=== PATIENT | male | born 1950 | race African-American/Black ===

== ENCOUNTER → 2017-11-21 | Day surgery (SDC) | payer MEDICARE, OTHER ==
[2017-11-20 12:48] LABS: BASOPHILS % 0.2 % (0.0-1.0); EOSINOPHILS % 0.5 % (0.0-6.0); HEMOGLOBIN 13.1 g/dL (14.0-18.0); LYMPHOCYTES # (AUTO) 1.8 (1.0-3.2); LYMPHOCYTES % 30.5 % (18.0-39.1); MEAN CORPUSCULAR HEMOGLOBIN 32.5 pg (28-32); MEAN CORPUSCULAR HGB CONC 34.5 g/dL (31-35); MEAN CORPUSCULAR VOLUME 94.3 fL (81-99); MONOCYTES # (AUTO) 0.6 (0.2-0.8); MONOCYTES % 9.8 % (4.4-11.3); NEUTROPHILS # (AUTO) 3.5 (2.1-6.9); NEUTROPHILS % 58.8 % (38.7-80.0); PLATELET COUNT 182 x10e3/uL (140-360); RED BLOOD COUNT 4.03 x10e6/uL (4.3-5.7)
[~2017-11-21] MED LIST: AMLODIPINE BESY10 MG PO; ATENOLOL50 MG PO; FENTANYL CITRATE/PF 100MCG/2 ML INJ ONE; FLOMAX0.4 MG PO; LOSARTAN POTAS100 MG PO; MIDAZOLAM HCL 2 MG/2 ML VIAL ONE; PROPOFOL IV EMULSION 10 MG/ML 50 ML VIAL ONE; ULTRAM50 MG PO; VICOPROFEN PO
== END | disposition home or self-care (01) ==
LOC: OR 07:15
PROVIDERS: ATTEND Internal Medicine Gastroenterology
DX: K29.50 Unspecified chronic gastritis without bleeding (principal); D13.2 Benign neoplasm of duodenum; K31.7 Polyp of stomach and duodenum; K22.2 Esophageal obstruction; K21.0 Gastro-esophageal reflux disease with esophagitis; K44.9 Diaphragmatic hernia without obstruction or gangrene; K57.30 Diverticulosis of large intestine without perforation or abscess without bleeding; K64.8 Other hemorrhoids; K59.00 Constipation, unspecified; R63.4 Abnormal weight loss; B96.81 Helicobacter pylori [H. pylori] as the cause of diseases classified elsewhere; I10 Essential (primary) hypertension; B19.20 Unspecified viral hepatitis C without hepatic coma; I49.3 Ventricular premature depolarization; Z01.810 Encounter for preprocedural cardiovascular examination; Z01.812 Encounter for preprocedural laboratory examination
CPT/HCPCS: 36415; 43239; 45378; 85025; 88305; 88312; 93005; J2250

== ENCOUNTER 2020-05-05 10:13 | Outpatient (RCR) | payer MEDICARE, OTHER ==
[~2020-05-05 10:13] MED LIST changes: -FENTANYL CITRATE/PF 100MCG/2 ML INJ ONE; -MIDAZOLAM HCL 2 MG/2 ML VIAL ONE; -PROPOFOL IV EMULSION 10 MG/ML 50 ML VIAL ONE
== END 2020-05-07 ==
LOC: PT 10:13
PROVIDERS: ATTEND Specialist
DX: M17.12 Unilateral primary osteoarthritis, left knee (principal)

== ENCOUNTER 2020-05-23 08:00 | Outpatient (RCR) | payer MEDICARE, OTHER | END 2020-06-06 | LOC: PT 08:00 | PROVIDERS: ATTEND Specialist | DX: M17.12 Unilateral primary osteoarthritis, left knee (principal) | CPT/HCPCS: 97139 ==

== ENCOUNTER 2020-06-24 09:00 | Outpatient (RCR) | payer MEDICARE, OTHER | END 2020-07-07 | LOC: PT 09:00 | PROVIDERS: ATTEND Specialist | DX: M17.12 Unilateral primary osteoarthritis, left knee (principal) ==

== ENCOUNTER 2020-08-05 10:00 | Outpatient (RCR) | payer MEDICARE, OTHER | END 2020-08-07 | LOC: PT 10:00 | PROVIDERS: ATTEND Specialist | DX: M17.12 Unilateral primary osteoarthritis, left knee (principal); M25.562 Pain in left knee; M25.662 Stiffness of left knee, not elsewhere classified; M25.462 Effusion, left knee; M62.81 Muscle weakness (generalized); R26.9 Unspecified abnormalities of gait and mobility; R29.3 Abnormal posture | CPT/HCPCS: 97139 ==

== ENCOUNTER 2020-09-01 09:00 | Outpatient (RCR) | payer MEDICARE | END 2020-09-04 | LOC: PT 09:00 | PROVIDERS: ATTEND Specialist | DX: M17.12 Unilateral primary osteoarthritis, left knee (principal); M25.562 Pain in left knee; M25.462 Effusion, left knee; M25.662 Stiffness of left knee, not elsewhere classified; M62.81 Muscle weakness (generalized); R26.9 Unspecified abnormalities of gait and mobility; R29.3 Abnormal posture ==

== ENCOUNTER 2020-10-04 09:00 | Outpatient (RCR) | payer MEDICARE | END 2020-10-05 | LOC: PT 09:00 | PROVIDERS: ATTEND Specialist | DX: M16.11 Unilateral primary osteoarthritis, right hip (principal) ==

== ENCOUNTER 2020-10-06 09:06 | Outpatient (RCR) | payer MEDICARE | END 2020-11-04 | LOC: PT 09:06 | PROVIDERS: ATTEND Specialist | DX: M16.11 Unilateral primary osteoarthritis, right hip (principal) ==

== ENCOUNTER 2024-10-22 15:48 | Inpatient (IN) | payer MEDICARE ==
[~2024-10-22] VITALS: Ht 200.7 cm; Wt 72.1 kg
[2024-10-22] VITALS (8 sets, daily range): BP systolic 141–153; BP diastolic 86–97; PULSE 88–112; RESP 18–20; TEMP 98–98.6; O2SAT 94–100
[~2024-10-22 15:48] MED LIST changes: +FINASTERIDE5 MG PO; +MELOXICAM7.5 MG PO; +MULTI-VITAMIN1 EACH PO
[2024-10-22 16:34] LABS: BASOPHILS % 0.3 % (0.0-1.0); EOSINOPHILS # (AUTO) 0.1 (0.0-0.4); EOSINOPHILS % 1.1 % (0.0-6.0); HEMATOCRIT 43.1 % (38.2-49.6); HEMOGLOBIN 14.8 g/dL (14.0-18.0); LYMPHOCYTES # (AUTO) 1.7 (1.0-3.2); LYMPHOCYTES % 26.6 % (18.0-39.1); MEAN CORPUSCULAR HEMOGLOBIN 31.6 pg (28-32); MEAN CORPUSCULAR HGB CONC 34.3 g/dL (31-35); MEAN CORPUSCULAR VOLUME 92.1 fL (81-99); MONOCYTES # (AUTO) 0.5 (0.2-0.8); MONOCYTES % 7.8 % (4.4-11.3); PLATELET COUNT 210 x10e3/uL (140-360); RED BLOOD COUNT 4.68 x10e6/uL (4.3-5.7); RED CELL DISTRIBUTION WIDTH 13.3 % (11.7-14.4); WHITE BLOOD COUNT 6.25 x10e3/uL (4.8-10.8)
[2024-10-22] MEDS ORDERED: ONDANSETRON HCL INJ 2MG/ML 2ML 2 MG/ML VIAL IV PRN (16:45)
[2024-10-22 16:52] LABS: ALBUMIN 3.3 g/dL (3.5-5.0); ANION GAP 16.9 mmol/L (8-16); BILIRUBIN,TOTAL 1.6 mg/dL (0.2-1.2); CALCIUM 9.5 mg/dL (8.4-10.2); CREATININE, SERUM 1.03 mg/dL (0.72-1.25); POTASSIUM 3.9 mmol/L (3.5-5.1); TOTAL PROTEIN 6.5 g/dL (6.5-8.1)
[2024-10-22] MEDS: LACTATED RINGER'S 1,000 ML INJ ONE (17:18)
[2024-10-22] MEDS: SODIUM CHLORIDE 0.9% 1000ML 1,000 ML IV SCH (18:18)
[2024-10-22 23:01] LABS: COLOR,URINE AMBER (YELLOW)
[2024-10-22 23:02] LABS: BILIRUBIN,URINE SMALL (NEGATIVE); CLARITY,URINE CLEAR (CLEAR); GLUCOSE, URINE NEGATIVE (NEGATIVE); KETONES,URINE 1+ (NEGATIVE); LEUKOCYTE ESTERASE ,URINE NEGATIVE (NEGATIVE); NITRITE,URINE NEGATIVE (NEGATIVE); PH,URINE 6 (5 - 7); PROTEIN,URINE DIPSTICK 2+ (NEGATIVE); URINE UROBILINOGEN 1 mg/dL (0.2 - 1)
[2024-10-22 23:28] LABS: BACTERIA,URINE MODERATE /HPF; EPITHELIAL CELLS,URINE FEW /LPF; RBC,URINE 0-5 /HPF (0-5); WBC,URINE (MAN) 0-5 /HPF (0-5)
[2024-10-23] VITALS (10 sets, daily range): BP systolic 112–146; BP diastolic 73–93; PULSE 76–99; RESP 18–20; TEMP 97.7–98.3; O2SAT 97–100
[2024-10-23 05:16] LABS: BASOPHILS % 0.4 % (0.0-1.0); EOSINOPHILS # (AUTO) 0.2 (0.0-0.4); EOSINOPHILS % 2.7 % (0.0-6.0); HEMOGLOBIN 12.1 g/dL (14.0-18.0); LYMPHOCYTES # (AUTO) 1.8 (1.0-3.2); LYMPHOCYTES % 32.8 % (18.0-39.1); MEAN CORPUSCULAR HEMOGLOBIN 31.8 pg (28-32); MEAN CORPUSCULAR HGB CONC 33.6 g/dL (31-35); MEAN CORPUSCULAR VOLUME 94.7 fL (81-99); MONOCYTES # (AUTO) 0.5 (0.2-0.8); MONOCYTES % 9.8 % (4.4-11.3); NEUTROPHILS % 53.9 % (38.7-80.0); PLATELET COUNT 174 x10e3/uL (140-360); RED CELL DISTRIBUTION WIDTH 13.3 % (11.7-14.4); WHITE BLOOD COUNT 5.52 x10e3/uL (4.8-10.8)
[2024-10-23 05:47] LABS: ANION GAP 10.6 mmol/L (8-16); CALCIUM 8.2 mg/dL (8.4-10.2); CREATININE, SERUM 0.77 mg/dL (0.72-1.25); POTASSIUM 3.6 mmol/L (3.5-5.1)
[2024-10-23 08:30] LABS: FREE T4 (FREE THYROXINE) 1.26 ng/dL (0.8-1.8); THYROID STIMULATING HORMONE 1.124 uIU/mL (0.350-4.940)
[2024-10-23] MEDS: LOSARTAN POTASSIUM 100 MG TAB PO SCH (09:25)
[2024-10-23] MEDS: FINASTERIDE 5 MG TAB PO SCH (09:25)
[2024-10-23] MEDS: ATENOLOL 50 MG TAB PO SCH (09:25)
[2024-10-23] MEDS: TAMSULOSIN HCL 0.4 MG CAP PO SCH (09:25)
[2024-10-23] MEDS: TRAMADOL HCL 50 MG TAB PO PRN (10:27)
[2024-10-24] VITALS (9 sets, daily range): BP systolic 106–146; BP diastolic 72–84; PULSE 66–82; RESP 18–20; TEMP 97.4–98.6; O2SAT 98–100
[2024-10-25 03:13] VITALS: BP 144/90; PULSE 70; RESP 18; TEMP 97.9; O2SAT 100
[2024-10-25 08:30] VITALS: BP 150/94; PULSE 70; RESP 18; TEMP 98.4; O2SAT 100
[2024-10-25 09:32] VITALS: BP 150/94; PULSE 70; RESP 18; TEMP 98.4; O2SAT 100
[2024-10-25 12:00] VITALS: BP 151/91; PULSE 69; RESP 18; TEMP 97.5; O2SAT 100
[2024-10-25 16:00] VITALS: BP 155/98; PULSE 65; RESP 18; TEMP 98.5; O2SAT 98
[2024-10-25 20:00] VITALS: BP 134/92; PULSE 91; RESP 18; TEMP 98.3; O2SAT 100
[2024-10-26] VITALS (7 sets, daily range): BP systolic 93–128; BP diastolic 59–89; PULSE 53–88; RESP 18–20; TEMP 97.2–98.6; O2SAT 98–100
[2024-10-26] MEDS: MELOXICAM 7.5 MG TAB PO SCH (11:32)
[2024-10-26] MEDS: PANTOPRAZOLE SOD 40 MG TABEC PO SCH (11:46)
[2024-10-27] VITALS (7 sets, daily range): BP systolic 105–146; BP diastolic 64–87; PULSE 73–87; RESP 17–18; TEMP 97.3–98.3; O2SAT 97–100
[2024-10-27 05:46] LABS: BASOPHILS % 0.3 % (0.0-1.0); EOSINOPHILS # (AUTO) 0.2 (0.0-0.4); EOSINOPHILS % 2.5 % (0.0-6.0); HEMATOCRIT 36.3 % (38.2-49.6); HEMOGLOBIN 12.5 g/dL (14.0-18.0); LYMPHOCYTES # (AUTO) 1.9 (1.0-3.2); LYMPHOCYTES % 30.1 % (18.0-39.1); MEAN CORPUSCULAR HEMOGLOBIN 31.6 pg (28-32); MEAN CORPUSCULAR HGB CONC 34.4 g/dL (31-35); MEAN CORPUSCULAR VOLUME 91.7 fL (81-99); MONOCYTES # (AUTO) 0.6 (0.2-0.8); MONOCYTES % 8.8 % (4.4-11.3); NEUTROPHILS # (AUTO) 3.6 (2.1-6.9); NEUTROPHILS % 57.8 % (38.7-80.0); PLATELET COUNT 183 x10e3/uL (140-360); RED BLOOD COUNT 3.96 x10e6/uL (4.3-5.7); RED CELL DISTRIBUTION WIDTH 13.8 % (11.7-14.4); WHITE BLOOD COUNT 6.28 x10e3/uL (4.8-10.8)
[2024-10-27 06:26] LABS: ALBUMIN 2.8 g/dL (3.5-5.0); ANION GAP 12.2 mmol/L (8-16); BILIRUBIN,TOTAL 0.7 mg/dL (0.2-1.2); CREATININE, SERUM 0.71 mg/dL (0.72-1.25); POTASSIUM 4.2 mmol/L (3.5-5.1); TOTAL PROTEIN 5.5 g/dL (6.5-8.1)
[2024-10-27 11:50] LABS: % IRON SATURATION 36 % (15-50); IRON 81 ug/dL (65-175); TOTAL IRON BINDING CAPACITY 227 ug/dL (261-478); TRANSFERRIN 162 mg/dL (174-364)
[2024-10-28] VITALS: BP 100/75; PULSE 81; RESP 18; TEMP 97.2; O2SAT 97
[2024-10-28 06:29] LABS: BASOPHILS % 0.5 % (0.0-1.0); EOSINOPHILS # (AUTO) 0.2 (0.0-0.4); EOSINOPHILS % 2.7 % (0.0-6.0); HEMATOCRIT 36.6 % (38.2-49.6); LYMPHOCYTES # (AUTO) 1.8 (1.0-3.2); LYMPHOCYTES % 29.9 % (18.0-39.1); MEAN CORPUSCULAR HEMOGLOBIN 31.2 pg (28-32); MEAN CORPUSCULAR HGB CONC 32.8 g/dL (31-35); MEAN CORPUSCULAR VOLUME 95.1 fL (81-99); MONOCYTES # (AUTO) 0.7 (0.2-0.8); MONOCYTES % 11.4 % (4.4-11.3); NEUTROPHILS # (AUTO) 3.3 (2.1-6.9); NEUTROPHILS % 54.8 % (38.7-80.0); PLATELET COUNT 193 x10e3/uL (140-360); RED BLOOD COUNT 3.85 x10e6/uL (4.3-5.7); RED CELL DISTRIBUTION WIDTH 14.1 % (11.7-14.4); WHITE BLOOD COUNT 6.03 x10e3/uL (4.8-10.8)
[2024-10-28 06:55] LABS: HEPATITIS A ANTIBODY IGM (P) Negative
[2024-10-28 06:56] LABS: HEPATITIS B CORE IGM (P) Negative; HEPATITIS B SURFACE AG (P) Negative
[2024-10-28 07:08] LABS: ANION GAP 12.3 mmol/L (8-16); CALCIUM 8.5 mg/dL (8.4-10.2); CREATININE, SERUM 0.69 mg/dL (0.72-1.25); POTASSIUM 4.3 mmol/L (3.5-5.1)
[2024-10-28 07:51] VITALS: BP 112/76; PULSE 76; RESP 19; TEMP 98.3; O2SAT 99
[2024-10-28 09:00] VITALS: BP 112/76; PULSE 76; RESP 19; TEMP 98.3; O2SAT 99
[2024-10-28 11:32] VITALS: BP 119/80; PULSE 88; RESP 20; TEMP 97.9; O2SAT 100
[2024-10-28 15:22] VITALS: BP 99/67; PULSE 82; RESP 17; TEMP 98; O2SAT 100
[2024-10-28 20:00] VITALS: BP 120/71; PULSE 87; RESP 18; TEMP 98.5; O2SAT 99
[2024-10-29] VITALS: BP 128/72; PULSE 81; RESP 18; TEMP 98.6; O2SAT 99
[2024-10-29 04:00] VITALS: BP 136/75; PULSE 79; RESP 18; TEMP 97.9; O2SAT 100
[2024-10-29 08:00] VITALS: BP 130/79; PULSE 86; RESP 18; TEMP 98; O2SAT 100
[2024-10-29 12:00] VITALS: BP 129/81; PULSE 94; RESP 19; TEMP 97.3; O2SAT 100
[2024-10-29] MEDS ORDERED: PROTONIX20 MG PO (12:57)
[2024-10-29 16:00] VITALS: BP 126/76; PULSE 81; RESP 18; TEMP 97.9; O2SAT 100
[2024-11-02 07:27] LABS: HEPATITIS C ANTIBODY Reactive
== END 2024-10-29 17:20 | DRG 551 ==
LOC: ER 16:09 → ERHOLD 16:37 → MED/SURG2 17:35 → OBSVTOIN 10-23 11:57
PROVIDERS: ADMIT Internal Medicine; ATTEND Internal Medicine
DX: M41.87 Other forms of scoliosis, lumbosacral region (principal); E43 Unspecified severe protein-calorie malnutrition; J69.0 Pneumonitis due to inhalation of food and vomit; G61.0 Guillain-Barre syndrome; G82.20 Paraplegia, unspecified; Z68.1 Body mass index [BMI] 19.9 or less, adult; G83.4 Cauda equina syndrome; E86.0 Dehydration; G70.9 Myoneural disorder, unspecified; C61 Malignant neoplasm of prostate; R62.7 Adult failure to thrive; M48.07 Spinal stenosis, lumbosacral region; M15.9 Polyosteoarthritis, unspecified; G62.9 Polyneuropathy, unspecified; I10 Essential (primary) hypertension; D64.9 Anemia, unspecified; R74.01 Elevation of levels of liver transaminase levels; N40.0 Benign prostatic hyperplasia without lower urinary tract symptoms; R63.4 Abnormal weight loss; R32 Unspecified urinary incontinence; R26.2 Difficulty in walking, not elsewhere classified; R53.1 Weakness
CPT/HCPCS: 36415; 71045; 72141; 72146; 72148; 76700; 80048; 80053; 81001; 82607; 82746; 83540; 84152; 84439; 84443; 84466; 85025; 85045; 87086; 93005; 93306; 94799; 95819; 99252; 99284; G0378; J0696; J2470; J7030